=== PATIENT | female | born 1940 | race Caucasian/White ===

== ENCOUNTER 2023-07-26 17:28 | Inpatient (IN) | payer MEDICARE, SELFPAY ==
[2023-07-26 12:25] VITALS: BP 133/66
[2023-07-26 12:44] LABS: % Basophils 0.2 % (0-2); % Eosinophils 2.4 % (0-6); % Immature Granulocytes 0.5 % (0-0.5); % Lymphocytes 12.9 % (20.5-51.1); % Monocytes 9.8 % (1.7-9.3); % Neutrophils 74.2 % (42.2-75.2); Absolute Eosinophils 0.1 10^3/uL (0-0.7); Absolute Lymphocytes 0.7 10^3/uL (1.2-3.4); Absolute Monocytes 0.6 10^3/uL (0.1-0.6); Absolute Neutrophils 4.3 10^3/uL (1.4-6.5); Hematocrit 29.2 % (37.0-47.0); Hemoglobin 10.1 g/dL (12.0-16.0); Mean Corp Hgb Conc. 34.6 g/dL (33.0-37.0); Mean Corpuscular Hgb 31.7 pg (27.0-31.0); Mean Corpuscular Volume 91.5 fL (81.0-99.0); Mean Platelet Volume 10.1 fL (7.4-10.4); Nucleated Red Blood Cells % 0 %; Platelet Count 158 10^3/uL (130-400); Red Blood Cell Count 3.19 10^6/uL (4.20-5.40); Red Cell Dist. Width 14.7 % (11.5-14.5); White Blood Cell Count 5.7 10^3/uL (4.8-10.8)
[2023-07-26 13:09] LABS: ALT (SGPT) 12 U/L (0-35); AST (SGOT) 21 U/L (14-36); Albumin 3.9 g/dl (3.5-5.0); Alkaline Phosphatase 94 U/L (38-126); Blood Urea Nitrogen 51 mg/dl (7-17); Calcium 9.1 mg/dl (8.4-10.2); Carbon Dioxide 21 mmol/L (22-30); Chloride 105 mmol/L (98-107); Glucose 95 mg/dl (70-99); Sodium 132 mmol/L (135-145); Total Bilirubin 0.6 mg/dl (0.2-1.3); Total Protein 6.7 g/dl (6.3-8.2); eGFR 15.39
[2023-07-26 13:28] VITALS: BMI 34.7
--- NOTE | 2023-07-26 13:54 | ED.GENMED ---
History of Present Illness
General
Chief Complaint: Urinary Symptoms
Source: patient and family (daughter at bedside)
Exam Limitations: dementia
Time Seen by Provider: 07/26/23 12:57
Nursing documentation reviewed up to this point in time: agreed with
Travel History
Have you had any contact with someone who has COVID-19?: No
Do you have any symptoms of coronavirus? Fever > 100 degrees, chills, cough, shortness of breath, sore throat, loss of taste or smell, muscle aches, or headache?: No
History of Present Illness
History of Present Illness:
83 yo female from [facility] (admitted there from home 3 weeks ago), h/o COPD, HTN, HLD, GERD, breast CA, arrhythmias with syncope then pacemaker, on Eliquis has been having hematuria. Daughter states pt was diagnosed with UTI 2 weeks ago,
started on Bactrim 6 days ago, pt told daughter she was 'peeing blood,' 3 days ago, daughter actually saw it in a hat in toiled today and took picture, it is dark maroon urine in hat.
Pt denies CP, SOB, has felt fatigued. Denies abdominal pain, fever, chill, denies n/v/d.
Past History
Past History
ED Past Medical History: Cancer (Lumpectomy), HTN, Hypercholesterolemia and Hypothyroidism
ED Past Surgical History: Appendectomy, Cardiac (pacemaker), Gynecological, Orthopedic, Urological (hysterectomy) and Other (Lumpectomy L 2010)
Social History
Tobacco: Non-smoker
Alcohol: None
Drug: None
Personal:
Living: with family
Employment: Retired
Family History
Family History: Hypertension
Review of Systems
Review of Systems
Allergies reviewed?: Yes
All Other Systems: ROS reviewed and negative except as documented in HPI and ROS
Constitutional: Reports fatigue; Denies fever
Respiratory: Denies trouble breathing
Cardiac: Denies chest pain
ABD/GI: Denies abdominal pain, nausea, vomiting or diarrhea
: Reports flank pain (R flank pain), incontinence and dark urine; Denies dysuria, frequency, difficulty voiding or urgency
Skin: Reports no symptoms
Neurological: Reports no symptoms
Phy Exam
Physical Exam
Physical Exam:
GENERAL: No acute distress. A&Ox3. Mild memory issues from dementia
CONSTITUTIONAL: Afebrile.
EYES: PERRL, conjunctivae normal
Neck: Supple
ENMT: moist mucus membranes, Pharynx nl
RESPIRATORY: Regular respirations, nonlabored, lungs clear.
CARDIOVASCULAR: Regular rate and rhythm, no murmurs, no rubs.
GI: Soft, nontender, normal BS. Right flank tenderness to palpation
: There is no blood coming from the vaginal canal. This examiner straight catheterized patient for 200 mL of dilute brownish-maroon colored urine.
MUSCULOSKELETAL: No edema. Well perfused.
SKIN: Warm, dry, pink
PSYCH: Normal mood and affect. Well kept, interactive and appropriate
NEUROLOGIC: Awake, alert and oriented. Forgetful at times. No focal neurological deficits
Course
Orders/Labs/Results
Orders:
Orders
07/26/23 12:33
Complete Blood Count/With Diff Urgent
Comprehensive Metabolic Panel Urgent
07/26/23 13:26
PT/INR [Prothrombin Time] Urgent
07/26/23 14:07
Urinalysis Reflex To Culture Urgent
Date Specimen was Collected: 07/26/23
Time Specimen was Collected: 14:06
Urine Microscopic Reflex Cult Urgent
Urine Culture Urgent
PATRICIA Source: U
Specimen Description:
Date Specimen was Collected: 07/26/23
Time Specimen was Collected: 14:06
07/26/23 14:09
Abdomen/Pelvis wo Contrast CT [CT Abd/pelvis Wo Iv Cont] Urgent
Comment:
Reason For Exam: Hematuria on Eliquis, ELIOT
07/26/23 Dinner
Regular
At Your Request: Full Participation
07/26/23 16:37
Admit/Transfer Patient As Directed
Co-Sign Provider:
Level of Care: Inpatient admission
Assign to:: Medical/Surgical
Physician / Group: kayden
Diagnosis: kidney mass
Reason for Hospitalization: kidney mass
Expected length of stay greater than two midnights?: Yes
ELOS- Estimated Length of Stay in days: 2
I certify the patient meets the requirements for IP care: Yes
07/26/23 16:38
Code Status As Directed
Resuscitation Status: Do not resuscitate
Reached after discussion with pt or family/Healthcare POA: Yes
DNR Bracelet Application ONCE
07/26/23 16:44
Intake/ Output As Directed
Frequency: Per unit guidelines
Comment: strict intake and output monitoring
Weight As Directed
Frequency: Daily
07/26/23 19:44
0.9% Sodium Chloride 1000 ml [Nss] 1,000 ml IV 80 mls/hr
Acetaminophen [Tylenol] 650 mg PO Q6HPRN PRN
Albuterol [ProAIR HFA INHALER] 1 puff INH R Q6HPRN PRN
07/26/23 19:44
Activity As Directed
Activity Level: As Tolerated
Pneumatic Compression Sleeves As Directed
Type: Knee high
Vital Signs As Directed
Frequency: Per unit guidelines
DX Deep Vein Thrombosis Video Routine
07/26/23 21:00
Metoprolol Xl [Toprol Xl] 12.5 mg PO BID
Pantoprazole [Protonix] 40 mg PO BID
07/27/23 07:00
Levothyroxine [Synthroid] 88 mcg PO DAILY AT 0700
07/27/23 07:21
Complete Blood Count/With Diff IN AM
Comprehensive Metabolic Panel IN AM
07/27/23 08:00
Lactobac/Bifidobac [Visbiome] 1 cap PO DAILY
Tolterodine Extended Release [Detrol LA] 2 mg PO DAILY
Abnormal Lab Results
07/26/23 07/26/23 07/26/23
12:33 13:26 14:07
RBC 3.19 L 10^6/uL
(4.20-5.40)
Hgb 10.1 L g/dL
(12.0-16.0)
Hct 29.2 L %
(37.0-47.0)
MCH 31.7 H pg
(27.0-31.0)
RDW 14.7 H %
(11.5-14.5)
Absolute Lymphs (auto) 0.7 L 10^3/uL
(1.2-3.4)
Lymphocytes % 12.9 L %
(20.5-51.1)
Monocytes % 9.8 H %
(1.7-9.3)
PT 23.6 H Sec
(11.4-14.6)
Sodium 132 L mmol/L
(135-145)
Carbon Dioxide 21 L mmol/L
(22-30)
BUN 51 H mg/dl
(7-17)
Creatinine 2.9 H mg/dL
(0.6-1.0)
Urine Ketones Trace A
(Negative)
Ur Occult Blood Reflex 4+ A
(Negative)
Urine Nitrite (Reflex) Positive A
(Negative)
Urine Bilirubin 1+ A
(Negative)
Leukocyte Esterase Rfl 1+ A
(Negative)
Urine RBC >100 A /HPF
(0-2)
Urine Bacteria (Reflex) Few A
(Negative)
Urine Albumin (Reflex) 2+ A
(Neg - Trace)
07/26/23 12:33
07/26/23 12:33
Vital Signs
Initial and Last Documented VS:
Initial Vital Signs
Temp Pulse Resp BP Pulse Ox
98.5 F 71 18 133/66 95
07/26/23 12:25 07/26/23 12:25 07/26/23 12:25 07/26/23 12:25 07/26/23 12:25
Last Documented Vital Signs
Temp Pulse Resp BP Pulse Ox
97.5 F 63 18 183/63 96
07/27/23 16:39 07/27/23 16:39 07/27/23 16:39 07/27/23 16:39 07/27/23 16:39
Bin Filler consulted with Physician
Bin Filler consulted with physician?: Yes
Name of Physician Consulted: Lois
MDM/Problems Addressed
Differential Diagnosis Includes:
hemorrhagic cystitis, malignancy, Eliquis overmedication, vaginal bleeding
MDM/Problems Addressed:
83 yo female from [facility] (admitted there from home 3 weeks ago), h/o COPD, HTN, HLD, GERD, breast CA, arrhythmias with syncope then pacemaker, on Eliquis has been having hematuria. Daughter states pt was diagnosed with UTI 2 weeks ago,
started on Bactrim 6 days ago, pt told daughter she was 'peeing blood,' 3 days ago, daughter actually saw it in a hat in toiled today and took picture, it is dark maroon urine in hat.
Pt denies CP, SOB, has felt fatigued. Denies abdominal pain, fever, chill, denies n/v/d.
afebrile, NAD
07/26/2023 1555 PM
No indication of vaginal bleeding on exam
CBC with no clinically significant abnormality
CMP: Worsening kidney functions with BUN/creat 51/2.9 otherwise no clinically significant abnormality
UA: Straight catheterized: 4+ occult blood positive nitrites, +1 leukocytes, greater than 100 RBCs, negative WBCs
CT abdomen pelvis with IV contrast: Radiology report read: IMPRESSION:
No findings to suggest urinary tract calculus or dilatation bilaterally.
Cannot exclude approximate 7 cm slightly high attenuation lesion such as a mass/tumor along the lower pole the right kidney.
Limited evaluation of unopacified urinary bladder. Cannot exclude some mild right posterior urinary bladder wall thickening versus en plaque lesion.
Small hiatal hernia.
83 yo female with ELIOT, gross hematuria (on eliquis), 7 cm mass on R kidney, on Bactrim day 6 for UTI
Discussed with Dr. Abreu who agrees with admission
Hospitalist notified of admission
Daughter at bedside updated on results and plan.
*Critical Care Note
Total Time (30-74mins, 75-104mins- exclusive of procedures): Not Applicable
ED Attending Note
-
Portions of this chart may have been created with voice recognition software.� Occasional wrong word or��sound alike� substitutions may have occurred due to the inherent limitations of voice recognition software.
Discharge Plan
Departure
Patient Disposition: Admit
Date of Disposition: 07/26/23
Time of Disposition: 16:01
Admit to: Med/Surg
Presentation/result/management discussed w/ accepting MD/DO: Hospitalist
Condition: Fair
Discharge Problem:
Gross hematuria, ELIOT (acute kidney injury), Renal mass, right
Interventions
Interventions:
*Risk Screen - Suicide Last Done: 07/26/23 12:25
*General Assessment Last Done: 07/26/23 12:25
*Neglect/Abuse Screening Last Done: 07/26/23 12:25
ED- Fall Risk Assessment Last Done: 07/26/23 13:28
*ED COVID-19 Vaccine History Last Done: 07/26/23 12:25
*Nursing Disposition Last Done: 07/26/23 21:20
Discharge Date and Time
Discharge Date/Time: 07/26/23 21:21
[2023-07-26 13:57] LABS: INR 2.07; PT 23.6 Sec (11.4-14.6)
[2023-07-26 14:25] LABS: Urine Albumin 2+ (Neg - Trace); Urine Bilirubin 1+ (Negative); Urine Character Slightly Cloudy (Clear); Urine Color Amber; Urine Glucose Negative (Negative); Urine Ketone Trace (Negative); Urine Leukocyte 1+ (Negative); Urine Nitrite Positive (Negative); Urine Occult Blood 4+ (Negative); Urine Urobilinogen Negative (Neg - 1+)
[2023-07-26 15:21] LABS: Urine Red Blood Cell >100 /HPF (0-2)
[2023-07-26 15:22] LABS: Urine Bacteria Few (Negative)
--- NOTE | 2023-07-26 16:45 | HPS.HSE ---
Addendum entered and electronically signed by Izabella Reynolds MD 07/26/23 17:39:
Urology thinks patient has hemorrhagic cystitis. Await urine culture and Start Levaquin for persistent UTI.
Original Note:
Family Physician
-
Family Physician: CAMILO Pierce
Chief Complaint
-
blood in the urine
History of Present Illness
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
Eliquis presenting from [facility] with dark blood in the urine noticed over the past 2 days.
Patient was apparently diagnosed with UTI 2 weeks ago because she was having urinary frequency and burning and has been on Bactrim for the past 6 days. The dysuria has resolved but 2 days ago staff noticed that there was blood in the urine which
has been ongoing. Patient also complained of some right flank pain recently although no pain currently. No abdominal pain or nausea or vomiting. No history of kidney stones. Patient has lost 10 pounds recently and has been feeling fatigued.
No family history of urological problems.
She was a former smoker. She no longer drinks alcohol.
Medical History
Past Medical History
Past Medical History: Reports Other (dementia, COPD, hypertension, hypercholesteremia, hypothyroidism, GERD, breast cancer status postlumpectomy, left bundle branch block, atrial arrhythmia/bradycardia status post permanent pacemaker on Eliquis)
Past Surgical History: Reports Other ( Appendectomy, Cardiac (pacemaker), Gynecological, Orthopedic, Urological (hysterectomy) and Other (Lumpectomy L 2010))
Social History
Tobacco: Former Smoker
Alcohol: None
Drug: None
Family History
Family History: Not pertinent
Allergies / Home Medications
Allergies reflects when Allergies were last updated in [facility].
Home Medications with original date entered in [facility]
Allergy/Medication List:
Allergies
Allergy/AdvReac Type Severity Reaction Status Date / Time
Cephalosporins Allergy Severe Rash Verified 07/26/23 12:29
Penicillins Allergy Severe Rash Verified 07/26/23 12:29
sulfamethoxazole Allergy Mild Rash Verified 07/26/23 12:29
[From Bactrim]
trimethoprim [From Bactrim] Allergy Mild Rash Verified 07/26/23 12:29
Home Medications
omeprazole 20 mg capsule,delayed release 20 mg PO BID Gastrointestinal Issue 02/17/19
solifenacin 10 mg tablet (Vesicare) 5 mg PO DAILY Urinary Issue 02/17/19
Lactobac no.2-Bifidobac no.1-S. thermo 112.5 billion cell capsule (Visbiome) 1 cap PO DAILY probiotic 07/26/23
acetaminophen 325 mg tablet (Tylenol) 650 mg PO Q6HPRN PRN mild pain 07/26/23
albuterol sulfate 90 mcg/actuation aerosol inhaler (ProAir HFA) 1 puff inhalation R Q6HPRN PRN sob 07/26/23
apixaban 5 mg tablet (Eliquis) 5 mg PO BID Blood Clot Prevention/Tx 07/26/23
levothyroxine 88 mcg tablet (Synthroid) 88 mcg PO DAILY Thyroid 07/26/23
metoprolol succinate 25 mg tablet,extended release 24 hr (Toprol XL) 12.5 mg PO BID Blood Pressure 07/26/23
sulfamethoxazole 800 mg-trimethoprim 160 mg tablet (Bactrim DS) 1 tab PO BID Infection 07/26/23
valsartan 80 mg tablet (Diovan) 80 mg PO DAILY Blood Pressure 07/26/23
Review of Systems
-
History Source: Patient
A 12 point ROS was completed and negative except as noted: Yes
Constitutional: Reports No Symptoms
EENT: Reports No Symptoms
Respiratory: Reports No Symptoms
Cardiac: Reports No Symptoms
Abdomen/GI: Reports No Symptoms
: Reports See HPI
Musculoskeletal: Reports No Symptoms
Skin: Reports No Symptoms
Neurological: Reports No Symptoms
Endocrine: Reports No Symptoms
Hematologic/Lymphatic: Reports No Symptoms
Psych: Reports No Symptoms
Physical Exam
Vital Signs
Vital Signs
Temp Pulse Resp BP Pulse Ox
98.5 F 71 18 133/66 95
07/26/23 12:25 07/26/23 12:25 07/26/23 12:25 07/26/23 12:25 07/26/23 12:25
Physical Exam
General: Well Developed, Well Nourished and No Apparent Distress
HEENT: NormoCephalic, Moist mucous membranes and Atraumatic
Respiratory: Clear
Cardiac: S1/S2 and Regular Rhythm; No Murmur or Rub
GI: Soft, Non Tender, Non Distended and Normal Bowel Sounds; No Organomegaly
Rectal: Deferred by Provider
Musculoskeletal: No Clubbing, No Cyanosis and No Edema
Skin: No Rash
Neuro: Nonfocal/grossly intact
Laboratory Results
-
07/26/23 12:33
07/26/23 12:33
Laboratory Results
PT 23.6 Sec (11.4-14.6) H 07/26/23 13:26
INR 2.07 07/26/23 13:26
Total Bilirubin 0.6 mg/dl (0.2-1.3) 07/26/23 12:33
AST 21 U/L (14-36) 07/26/23 12:33
ALT 12 U/L (0-35) 07/26/23 12:33
Alkaline Phosphatase 94 U/L (38-126) 07/26/23 12:33
Data Reviewed
-
Lab Data: Labs Reviewed by me
Old Records: Reviewed
Impression/Plan
-
IMPRESSION:
PLAN:
# Hematuria likely secondary to right kidney mass
-Patient retaining 200 cc of urine
-Urinalysis shows greater than 100 RBC, +1 leukocyte esterase, positive nitrates and cloudy urine and 3-5 [address]
-CT abdomen pelvis shows 7 cm slightly high attenuation lesion mass/tumor along the lower pole of the right kidney
-Hold Eliquis
-Campos catheter likely to be placed
-Urology consulted
# ELIOT on CKD
-Creatinine of 2.9 from 1.3
-IV fluids
-Hold Bactrim
-Hold valsartan
# Recent UTI
-Received 6 days of Bactrim, discontinue further antibiotics
Chronic urinary incontinence/overactive bladder
-Continue Vesicare
Dementia
Chronic anemia
-Hemoglobin stable
History of atrial arrhythmia with pacemaker
-Hold Eliquis
-Continue metoprolol
History of left bundle branch block
History of breast cancer status postlumpectomy
COPD
-Continue inhalers
Essential hypertension
Hypercholesterolemia
Hypothyroidism
-Continue levothyroxine
GERD
-Continue omeprazole
Former smoker
DNR/DNI
DVT prophylaxis�SCDs
Regular diet
[2023-07-26] MEDS: LEVAQUIN 100 IV (18:07)
[2023-07-26 21:44] VITALS: BP 149/69; BMI 34.2
[2023-07-26] MEDS: NSS 1000 IV (21:46)
[2023-07-26] MEDS: PROTONIX 40 MG PO (22:09)
[2023-07-26] MEDS: TOPROL XL 12.5 MG PO (22:10)
[2023-07-26 23:06] VITALS: BP 141/75
--- NOTE | 2023-07-27 01:00 | PTCARENOTE ---
Received patient from ER, AAOx3. Patient transferred from stretcher to bed with assist of 3. No c/o pain at this time. Voiding tea colored urine. Oriented to unit, placed on bed alarm d/t recent falls. Bruising noted to left buttocks. Call aparicio
in reach, plan of care continues.
[2023-07-27 06:00] VITALS: BMI 33.8
[2023-07-27] MEDS: SYNTHROID 88 MCG PO (06:31)
[2023-07-27 07:00] VITALS: BP 149/70
[2023-07-27 08:02] LABS: % Basophils 0.2 % (0-2); % Eosinophils 2.8 % (0-6); % Immature Granulocytes 0.2 % (0-0.5); % Lymphocytes 11.8 % (20.5-51.1); % Monocytes 9.3 % (1.7-9.3); % Neutrophils 75.7 % (42.2-75.2); Absolute Eosinophils 0.1 10^3/uL (0-0.7); Absolute Lymphocytes 0.6 10^3/uL (1.2-3.4); Absolute Monocytes 0.5 10^3/uL (0.1-0.6); Absolute Neutrophils 3.9 10^3/uL (1.4-6.5); Hematocrit 28.3 % (37.0-47.0); Hemoglobin 9.7 g/dL (12.0-16.0); Mean Corp Hgb Conc. 34.3 g/dL (33.0-37.0); Mean Corpuscular Hgb 31.3 pg (27.0-31.0); Mean Corpuscular Volume 91.3 fL (81.0-99.0); Mean Platelet Volume 10.5 fL (7.4-10.4); Nucleated Red Blood Cells % 0 %; Platelet Count 158 10^3/uL (130-400); Red Cell Dist. Width 14.6 % (11.5-14.5); White Blood Cell Count 5.1 10^3/uL (4.8-10.8)
[2023-07-27 08:28] LABS: ALT (SGPT) 11 U/L (0-35); AST (SGOT) 19 U/L (14-36); Albumin 3.7 g/dl (3.5-5.0); Alkaline Phosphatase 92 U/L (38-126); Blood Urea Nitrogen 44 mg/dl (7-17); Calcium 9.3 mg/dl (8.4-10.2); Carbon Dioxide 21 mmol/L (22-30); Chloride 103 mmol/L (98-107); Estimated Creatinine Clearance 17 ml/min; Glucose 92 mg/dl (70-99); Potassium 4.9 mmol/L (3.5-5.1); Sodium 134 mmol/L (135-145); Total Bilirubin 0.6 mg/dl (0.2-1.3); Total Protein 6.6 g/dl (6.3-8.2); eGFR 21.43
[2023-07-27] MEDS: PROTONIX 40 MG PO ×2 (09:02→20:03)
[2023-07-27] MEDS: DETROL LA 2 MG PO (09:02)
[2023-07-27] MEDS: VISBIOME 1 CAP PO (09:02)
[2023-07-27] MEDS: TOPROL XL 12.5 MG PO ×2 (09:02→20:03)
--- NOTE | 2023-07-27 10:09 | CM ---
Patient seen at bedside. Patient daughter also present. Patient daughter states that patient will return to LTC SNF at [facility]. CM will call to admissions and confirm bed hold with [facility]. CM will continue to follow for discharge
planning needs.
Plan; return to SNF when medically appropriate.
[2023-07-27] MEDS: NSS 1000 IV ×2 (10:33→22:58)
--- NOTE | 2023-07-27 10:47 | W.PN.HOSP.TC ---
Today's Communication/Plan
-
Continue to hold Eliquis
Continue present course of antibiotic with Levaquin
Continue hydration for another 24 hours
Monitor BMP/H&H with continued hematuria consult urology
Patient's daughter reiterated she would not consent to any interventions including cystoscopy if needed
Assessment / Plan
Assessment / Plan
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
Eliquis presenting from [facility] with dark blood in the urine noticed over the past 2 days.
Patient was apparently diagnosed with UTI 2 weeks ago because she was having urinary frequency and burning and has been on Bactrim for the past 6 days.� The dysuria has resolved but 2 days ago staff noticed that there was blood in the urine which
has been ongoing.� Patient also complained of some right flank pain recently although no pain currently.� No abdominal pain or nausea or vomiting.� No history of kidney stones.� Patient has lost 10 pounds recently and has been feeling fatigued.
No family history of urological problems.
She was a former smoker.� She no longer drinks alcohol.
Daughter reiterates that no interventions or invasive procedures be pursued in keeping with DNR status
# Hematuria likely secondary to right kidney mass
-Patient retaining 200 cc of urine
-Urinalysis shows greater than 100 RBC, +1 leukocyte esterase, positive nitrates and cloudy urine and 3-5 W[address]
-CT abdomen pelvis shows 7 cm slightly high attenuation lesion mass/tumor along the lower pole of the right kidney
-Hold Eliquis
-Campos catheter likely to be placed
-Urology consulted/they reviewed CT imaging and lower pole mass is actually 0.7 cm/with continued hematuria and the patient on anticoagulant therapy will confer with urology
# ELIOT on CKD
-Creatinine of 2.9 from 1.3/now at 2.2
-IV fluids will continue another 24 hours/she does have a history of CHF and will have to be cautious
-Hold Bactrim
-Hold valsartan
# Recent UTI
-Received 6 days of Bactrim, discontinue further antibiotics
Chronic urinary incontinence/overactive bladder
-Continue Vesicare
Dementia
Chronic anemia
-Hemoglobin stable thus far but trending down with continued hematuria
History of atrial arrhythmia with pacemaker
-Hold Eliquis
-Continue metoprolol
History of left bundle branch block
History of breast cancer status postlumpectomy
COPD
-Continue inhalers
Essential hypertension
Hypercholesterolemia
Hypothyroidism
-Continue levothyroxine
GERD
-Continue omeprazole
Former smoker
DNR/DNI
DVT prophylaxis�SCDs/apixaban continue to be held
Regular diet
Anticipated Discharge: 24 - 48 hours
Subjective/Interval History
-
Date of Service: July 27, 2023
Still passing bloody urine patient is a poor historian and virtually all history obtained from daughter who is at bedside. Is unclear how long time she has had hematuria
Objective Data
-
Labs:
Laboratory Results
07/27/23
07:21
WBC 5.1
Hgb 9.7 L
Hct 28.3 L
Plt Count 158
Sodium 134 L
Potassium 4.9
Chloride 103
Carbon Dioxide 21 L
BUN 44 H
Creatinine 2.2 H
Glucose 92
Calcium 9.3
Total Bilirubin 0.6
AST 19
ALT 11
Alkaline Phosphatase 92
Vital Signs:
Vital Signs
Temp Pulse Resp BP Pulse Ox
98.1 F 60 18 149/70 93
07/27/23 07:00 07/27/23 07:00 07/27/23 07:00 07/27/23 07:00 07/27/23 08:30
I&O
07/26/23 07/27/23 07/28/23
06:59 06:59 06:59
Intake Total 0 / 0 480 / 480
Output Total 550 / 550
Balance -550 / -550 480 / 480
Review of Systems
-
Unable to obtain full review of systems at this time due to: Dementia
History Source: Patient and Family
Respiratory: Reports No Symptoms
Cardiac: Reports No Symptoms
Genitourinary: Reports Bleeding and Dark Urine
Physical Exam
-
General: Obese
HEENT: Normocephalic
Respiratory: Clear to Auscultation
Cardiac: Regular Rhythm
GI: Soft
Musculoskeletal: No Clubbing
Skin: Warm
Neuro: Awake, Alert, Oriented, AO x 3 and No Motor Deficits
Psych: Calm, Confused and Apparent Dementia
Data Reviewed
-
Total Time Spent with Patient (in minutes): 56
Labs: Labs Reviewed by me (Hemoglobin down to 9.7/renal mass on right side is actually 0.7 cm/creatinine down to 2.2 BUN down to 44)
[2023-07-27] MEDS: TYLENOL 650 MG PO ×2 (12:45→20:06)
[2023-07-27 16:39] VITALS: BP 183/63
[2023-07-27 23:52] VITALS: BP 146/70
[2023-07-28 06:00] VITALS: BMI 34.2
[2023-07-28] MEDS: SYNTHROID 88 MCG PO (06:03)
[2023-07-28 07:30] VITALS: BP 170/77
[2023-07-28 09:00] LABS: Hemoglobin 10.6 g/dL (12.0-16.0); Mean Corp Hgb Conc. 34.2 g/dL (33.0-37.0); Mean Corpuscular Hgb 31.5 pg (27.0-31.0); Mean Platelet Volume 10.4 fL (7.4-10.4); Platelet Count 158 10^3/uL (130-400); Red Blood Cell Count 3.37 10^6/uL (4.20-5.40); Red Cell Dist. Width 14.5 % (11.5-14.5); White Blood Cell Count 4.6 10^3/uL (4.8-10.8)
[2023-07-28] MEDS: PROTONIX 40 MG PO ×2 (09:44→20:57)
[2023-07-28] MEDS: TOPROL XL 12.5 MG PO ×2 (09:44→20:57)
[2023-07-28] MEDS: DETROL LA 2 MG PO (09:44)
--- NOTE | 2023-07-28 09:44 | W.PN.HOSP.TC ---
Today's Communication/Plan
-
Improving
Overweight renal numbers today
Continue every 48 hour Levaquin
Continue cautious hydration
Once renal numbers improve can consider resumption of valsartan
With resolution of hematuria and completion of treatment for her hemorrhagic 6 that cystitis can resume Eliquis
Should hematuria return would need to see urology on follow-up as outpatient
Assessment / Plan
Assessment / Plan
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
Eliquis presenting from [facility] with dark blood in the urine noticed over the past 2 days.
Patient was apparently diagnosed with UTI 2 weeks ago because she was having urinary frequency and burning and has been on Bactrim for the past 6 days.� The dysuria has resolved but 2 days ago staff noticed that there was blood in the urine which
has been ongoing.� Patient also complained of some right flank pain recently although no pain currently.� No abdominal pain or nausea or vomiting.� No history of kidney stones.� Patient has lost 10 pounds recently and has been feeling fatigued.
No family history of urological problems.
She was a former smoker.� She no longer drinks alcohol.
Daughter reiterates that no interventions or invasive procedures be pursued in keeping with DNR status
# Hematuria likely secondary to right kidney mass
-Patient retaining 200 cc of urine
-Urinalysis shows greater than 100 RBC, +1 leukocyte esterase, positive nitrates and cloudy urine and 3-5 W[address]
-CT abdomen pelvis shows 7 cm slightly high attenuation lesion mass/tumor along the lower pole of the right kidney
-Hold Eliquis
-Urology consulted and conferred with them no need to see patient/they reviewed CT imaging and lower pole mass is actually 0.7 cm/recommendation is to complete course of therapy for UTI and consideration is hemorrhagic cystitis as cause of hematuria
will see as outpatient as needed should hematuria returned consideration would be toward discontinuation of Eliquis
# ELIOT on CKD
-Creatinine of 2.9 from 1.3/now at 2.2>> pending
-IV fluids will continue another 24 hours/she does have a history of CHF and will have to be cautious
-Hold Bactrim
-Hold valsartan/can be resumed once creatinine stabilizes
# Recent UTI
-Received 6 days of Bactrim, discontinue further placed on every 48 hour Levaquin
Chronic urinary incontinence/overactive bladder
-Continue Vesicare
Dementia
Chronic anemia
-Hemoglobin stable thus far but trending down with continued hematuria
History of atrial arrhythmia with pacemaker
-Hold Eliquis
-Continue metoprolol
History of left bundle branch block
History of breast cancer status postlumpectomy
COPD
-Continue inhalers
Essential hypertension
Hypercholesterolemia
Hypothyroidism
-Continue levothyroxine
GERD
-Continue omeprazole
Former smoker
DNR/DNI
DVT prophylaxis�SCDs/apixaban continue to be held
Regular diet
Anticipated Discharge: Within 24 hours
Subjective/Interval History
-
Date of Service: July 28, 2023
Poor historian due to underlying dementia
Nursing reports just tea-colored urine only no evidence of any gross hematuria.
Objective Data
-
Labs:
Laboratory Results
07/28/23
07:57
WBC 4.6 L
Hgb 10.6 L
Hct 31.0 L
Plt Count 158
Sodium Pending
Potassium Pending
Chloride Pending
Carbon Dioxide Pending
BUN Pending
Creatinine Pending
Glucose Pending
Calcium Pending
Vital Signs:
Vital Signs
Temp Pulse Resp BP Pulse Ox
97.9 F 67 16 170/77 94
07/28/23 07:30 07/28/23 08:18 07/28/23 08:18 07/28/23 07:30 07/28/23 08:18
I&O
07/27/23 07/28/23 07/29/23
06:59 06:59 06:59
Intake Total 0 / 0 1620 / 1620
Output Total 550 / 550 1100 / 1100
Balance -550 / -550 520 / 520
Physical Exam
-
HEENT: Normocephalic
Respiratory: Clear to Auscultation
Cardiac: Regular Rhythm
GI: Soft
Musculoskeletal: No Clubbing
Neuro: Awake; Negative Oriented or AO x 3
Psych: Calm
Data Reviewed
-
Total Time Spent with Patient (in minutes): 56
Labs: Labs Reviewed by me (Leukocytosis remains resolved/awaiting renal numbers last creatinine 2.2 was trending down)
[2023-07-28] MEDS: VISBIOME 1 CAP PO (09:45)
[2023-07-28 09:46] LABS: Blood Urea Nitrogen 32 mg/dl (7-17); Calcium 8.9 mg/dl (8.4-10.2); Carbon Dioxide 20 mmol/L (22-30); Chloride 106 mmol/L (98-107); Estimated Creatinine Clearance 24 ml/min; Glucose 101 mg/dl (70-99); Potassium 4.8 mmol/L (3.5-5.1); Sodium 136 mmol/L (135-145); eGFR 31.41
--- NOTE | 2023-07-28 11:17 | CM ---
Addendum entered by Shara Escobar 07/28/23 13:37:
CM spoke with Hoa from [facility]. Per Hoa, patient was SNF and in process of transitioning to LTC. TT sent to Hospitalist for PT/OT orders, patient will require auth to return to SNF. CM spoke with patients daughter, Sanna, inquiring about
switching to [facility]. CM sent message to James liaison at [facility], no availability as of now, possibly next week. Daughter also inquiring about [facility], TT sent to Nighat with [facility], unable to accept patient.
Original Note:
Patient seen bedside. CM awaiting confirmation from [facility] that patient is on bed hold. CM will continue to follow for discharge planning needs.
Plan; return to [facility] when stable, awaiting confirmation patient is on bed hold.
[2023-07-28] MEDS: NSS 1000 IV (11:40)
[2023-07-28] MEDS: LEVAQUIN 50 IV (11:42)
[2023-07-28] MEDS: TYLENOL 650 MG PO (11:51)
[2023-07-28 15:00] VITALS: BP 137/79
[2023-07-28 16:00] VITALS: BP 137/76; PULSE 71
[2023-07-28 23:38] VITALS: BP 147/72
[2023-07-29] MEDS: SYNTHROID 88 MCG PO (05:10)
[2023-07-29 06:00] VITALS: BMI 34.8
[2023-07-29 07:31] LABS: Hematocrit 30.1 % (37.0-47.0); Hemoglobin 9.9 g/dL (12.0-16.0); Mean Corp Hgb Conc. 32.9 g/dL (33.0-37.0); Mean Corpuscular Hgb 30.7 pg (27.0-31.0); Mean Corpuscular Volume 93.2 fL (81.0-99.0); Mean Platelet Volume 10.3 fL (7.4-10.4); Platelet Count 153 10^3/uL (130-400); Red Blood Cell Count 3.23 10^6/uL (4.20-5.40); Red Cell Dist. Width 14.7 % (11.5-14.5); White Blood Cell Count 4.8 10^3/uL (4.8-10.8)
[2023-07-29 07:52] VITALS: BP 127/68
[2023-07-29] MEDS: VISBIOME 1 CAP PO (09:29)
[2023-07-29] MEDS: LEVAQUIN 50 IV (09:29)
[2023-07-29] MEDS: PROTONIX 40 MG PO ×2 (09:29→20:58)
[2023-07-29] MEDS: TOPROL XL 12.5 MG PO ×2 (09:29→21:01)
[2023-07-29] MEDS: DETROL LA 2 MG PO (09:29)
[2023-07-29] MEDS: FLUSH (NSS) 2 FLUSH IV (09:30)
--- NOTE | 2023-07-29 10:25 | W.PN.HOSP.TC ---
Today's Communication/Plan
-
Recheck renal numbers
Would give 2 more doses of Levaquin then discontinue
Restart Eliquis if recurs with hematuria will need to see urology in follow-up as outpatient
Assessment / Plan
Assessment / Plan
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
Eliquis presenting from [facility] with dark blood in the urine noticed over the past 2 days.
Patient was apparently diagnosed with UTI 2 weeks ago because she was having urinary frequency and burning and has been on Bactrim for the past 6 days.� The dysuria has resolved but 2 days ago staff noticed that there was blood in the urine which
has been ongoing.� Patient also complained of some right flank pain recently although no pain currently.� No abdominal pain or nausea or vomiting.� No history of kidney stones.� Patient has lost 10 pounds recently and has been feeling fatigued.
No family history of urological problems.
She was a former smoker.� She no longer drinks alcohol.
Daughter reiterates that no interventions or invasive procedures be pursued in keeping with DNR status
# Hematuria likely secondary to hemorrhagic cystitis
-
-Urinalysis shows greater than 100 RBC, +1 leukocyte esterase, positive nitrates and cloudy urine and 3-5 WBC/urine culture with only 25,000 Streptococcus
-CT abdomen pelvis shows 7 cm slightly high attenuation lesion mass/tumor along the lower pole of the right kidney
-Hold Eliquis
-Urology consulted and conferred with them no need to see patient/they reviewed CT imaging and lower pole mass is actually 0.7 cm/recommendation is to complete course of therapy for UTI and consideration is hemorrhagic cystitis as cause of hematuria
will see as outpatient as needed should hematuria returned consideration would be toward discontinuation of Eliquis/will complete course of therapy with Levaquin
# ELIOT on CKD
-Creatinine of 2.9 from 1.3/now at 2.2>> pending
-IV fluids will continue another 24 hours/she does have a history of CHF and will have to be cautious
-Hold Bactrim
-Hold valsartan/can be resumed once creatinine stabilizes
-His creatinine 1.6 will recheck in a.m.
# Recent UTI
-Received 6 days of Bactrim,
-Renal dosed Levaquin started in titrated down to 250 mg
Chronic urinary incontinence/overactive bladder
-Continue Vesicare
Dementia
Chronic anemia
-Hemoglobin stable thus far but trending down with continued hematuria
History of atrial arrhythmia with pacemaker
-Hold Eliquis
-Continue metoprolol
History of left bundle branch block
History of breast cancer status postlumpectomy
COPD
-Continue inhalers
Essential hypertension
Hypercholesterolemia
Hypothyroidism
-Continue levothyroxine
GERD
-Continue omeprazole
Former smoker
DNR/DNI
DVT prophylaxis�SCDs/apixaban continue to be held
Regular diet
Anticipated Discharge: Within 24 hours
Subjective/Interval History
-
Date of Service: July 29, 2023
Patient was comfortable without complaint she is a poor historian due to underlying dementia urine seems to have cleared most now is light tea colored there is no evident flank pain
Objective Data
-
Labs:
Laboratory Results
07/29/23
06:44
WBC 4.8
Hgb 9.9 L
Hct 30.1 L
Plt Count 153
Vital Signs:
Vital Signs
Temp Pulse Resp BP Pulse Ox
97.5 F 76 16 127/68 96
07/29/23 07:52 07/29/23 09:29 07/29/23 07:52 07/29/23 09:29 07/29/23 07:52
I&O
07/28/23 07/29/23 07/30/23
06:59 06:59 06:59
Intake Total 1620 / 1620 1380 / 1380
Output Total 1100 / 1100 1250 / 1250
Balance 520 / 520 130 / 130
Review of Systems
-
Unable to obtain full review of systems at this time due to: Dementia
All other systems: Not reviewed unless documented
Physical Exam
-
General: No Apparent Distress
HEENT: Normocephalic
Respiratory: Clear to Auscultation
Cardiac: Regular Rhythm
GI: Soft, Nontender and Nondistended
Psych: Calm, Confused and Apparent Dementia
Data Reviewed
-
Total Time Spent with Patient (in minutes): 56
Labs: Labs Reviewed by me (White count stable hemoglobin 9.9 stable)
--- NOTE | 2023-07-29 13:55 | PTCARENOTE ---
Bladder scanned pt at 1000 after pt complaining of urinary pressure. Pt did have a saturated urinary episode (incontinent) prior to obtaining a Pvr of 309ml with bladder scan. Pt up since to bathroom and voided a moderate amount as well as
incontinent. Pt states that urinary pressure is now gone, will continue to monitor.
[2023-07-29 16:26] VITALS: BP 102/71
[2023-07-29] MEDS: ELIQUIS 5 MG PO (20:58)
[2023-07-29 23:22] VITALS: BP 154/75
[2023-07-30 06:00] VITALS: BMI 33.5
[2023-07-30] MEDS: SYNTHROID 88 MCG PO (06:23)
[2023-07-30 08:20] VITALS: BP 165/93
[2023-07-30 08:26] LABS: Blood Urea Nitrogen 27 mg/dl (7-17); Carbon Dioxide 20 mmol/L (22-30); Chloride 110 mmol/L (98-107); Estimated Creatinine Clearance 32 ml/min; Glucose 103 mg/dl (70-99); Potassium 4.6 mmol/L (3.5-5.1); Sodium 136 mmol/L (135-145); eGFR 44.36
[2023-07-30] MEDS: LEVAQUIN 250 MG PO (08:42)
[2023-07-30] MEDS: VISBIOME 1 CAP PO (08:43)
[2023-07-30] MEDS: PROTONIX 40 MG PO ×2 (08:43→20:36)
[2023-07-30] MEDS: ELIQUIS 5 MG PO ×2 (08:43→20:35)
[2023-07-30] MEDS: TOPROL XL 12.5 MG PO ×2 (08:43→20:35)
[2023-07-30] MEDS: DETROL LA 2 MG PO (08:43)
--- NOTE | 2023-07-30 09:23 | W.DS.TRANS ---
DC Summary - [employer]
-
Discharge Instructions:
Discharge Diagnosis/Procedures Hemorrhagic cystitis
Pseudomonas UTI
Acute kidney injury now resolved
Chronic kidney disease stage IIIa
Diet Regular
Activity As tolerated
Driving Restrictions As prior to admission
Instructions:
Stand-Alone Forms:
Changes to Home Medications: Yes
Discharge Medications:
DC Medications w/original date entered in [employer]
omeprazole 20 mg capsule,delayed release 20 mg PO BID Gastrointestinal Issue 02/17/19
solifenacin 10 mg tablet (Vesicare) 5 mg PO DAILY Urinary Issue 02/17/19
Lactobac no.2-Bifidobac no.1-S. thermo 112.5 billion cell capsule (Visbiome) 1 cap PO DAILY probiotic 07/26/23
acetaminophen 325 mg tablet (Tylenol) 650 mg PO Q6HPRN PRN mild pain 07/26/23
albuterol sulfate 90 mcg/actuation aerosol inhaler (ProAir HFA) 1 puff inhalation R Q6HPRN PRN sob 07/26/23
apixaban 5 mg tablet (Eliquis) 5 mg PO BID Blood Clot Prevention/Tx 07/26/23
levothyroxine 88 mcg tablet (Synthroid) 88 mcg PO DAILY Thyroid 07/26/23
metoprolol succinate 25 mg tablet,extended release 24 hr (Toprol XL) 12.5 mg PO BID Blood Pressure 07/26/23
valsartan 80 mg tablet (Diovan) 80 mg PO DAILY Blood Pressure 07/26/23
levofloxacin 250 mg tablet 250 mg PO DAILY #2 tabs 07/30/23
Home Medication Changes
levofloxacin 250 mg tablet 250 mg PO DAILY #2 tabs 07/30/23
Pending Results: No
Total time spent discharging patient (in min): 38
[2023-07-30] MEDS: DIOVAN 80 MG PO (09:49)
--- NOTE | 2023-07-30 10:51 | W.DCSUMMARY ---
Addendum entered and electronically signed by Tracie Herron MD 07/31/23 16:06:
Actual discharge date is 07/31/2023. Nothing else changed on the discharge summary.
Original Note:
Discharge Summary
Discharge Data
Date of Admission: 07/26/23
Date of Discharge: 07/30/23
-
Pending Results: No
Hospital Course
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
Eliquis presenting from [facility] with dark blood in the urine noticed over the past 2 days.
Patient was apparently diagnosed with UTI 2 weeks ago because she was having urinary frequency and burning and has been on Bactrim for the past 6 days.� The dysuria has resolved but 2 days ago staff noticed that there was blood in the urine which
has been ongoing.� Patient also complained of some right flank pain recently although no pain currently.� No abdominal pain or nausea or vomiting.� No history of kidney stones.� Patient has lost 10 pounds recently and has been feeling fatigued.
No family history of urological problems.
She was a former smoker.� She no longer drinks alcohol.
An initial CT scan of the abdomen done in the ED initially reported a seven 6 cm lower pole kidney mass that was later changed to 0.7 cm and this was also acknowledged and read by the urology service on-call with a christophe consultation and their
impression being hemorrhagic cystitis as cause of presentation. She presented with acute kidney injury above and beyond her baseline of creatinine of 1.2 with a creatinine of 2.2 and was felt this was partially in keeping with a recent course of
Bactrim which was discontinued she was placed on Levaquin based on renal status every 48 hours empirically awaiting urine culture results that eventually returned a culture result of 25,000 colonies of Streptococcus/hematuria resolved with hydration
and ELIOT returned to baseline of creatinine of 1.2./With resolution of her hematuria and completing course of her UTI for another 2 days with Levaquin her Eliquis was resumed/should there be a return of hematuria again thoughts would be to
discontinue Eliquis and an outpatient visit with the urology service/with case management consultation and PT OT assessment and in discussions with the face patient's daughter a return to long-term care at [facility] is warranted and she is now
medically stable arrangements can only be made for that through insurance authorization come July 30.
Discharge Plan
-
Patient Disposition: Assisted/SNF
Discharge Diagnosis/Procedures: Hemorrhagic cystitis
Pseudomonas UTI
Acute kidney injury now resolved
Chronic kidney disease stage IIIa
Diet: Regular
Activity: As tolerated
Driving Restrictions: As prior to admission
Referrals:
My Mascorro CRNP [Family Provider] - in less than 1 week
Prescriptions:
New
levofloxacin 250 mg Tablet
250 mg PO DAILY Qty: 2 0RF
Continued
omeprazole 20 MG capsule,delayed release(DR/EC)
20 mg PO BID
solifenacin [Vesicare] 10 MG tablet
5 mg PO DAILY
acetaminophen [Tylenol] 325 mg Tablet
650 mg PO Q6HPRN PRN (Reason: mild pain)
valsartan [Diovan] 80 mg Tablet
80 mg PO DAILY
metoprolol succinate [Toprol XL] 25 mg Tablet Extended Release 24 Hr
12.5 mg PO BID
albuterol sulfate [ProAir HFA] 90 mcg/actuation Hfa Aerosol Inhaler
1 puff INHALATION R Q6HPRN PRN (Reason: sob)
Visbiome 112.5 billion cell Capsule
1 cap PO DAILY
Patient Comments:
take from 07/20/23-08/03/23
levothyroxine [Synthroid] 88 mcg Tablet
88 mcg PO DAILY
Eliquis 5 MG tablet
5 mg PO BID
Discontinued
sulfamethoxazole-trimethoprim [Bactrim DS] 800-160 mg Tablet
1 tab PO BID
Patient Comments:
take from 07/20/23/-08/06/23
Discharge Orders:
Discharge Patient (As Directed); Ordered 07/31/23
Ordered By: Asael Gaspar
--- NOTE | 2023-07-30 12:21 | CM ---
CM spoke with patients daughter Sanna, discussed plan to return to [facility] once auth is obtained. Sanna reports she initially wanted patient to transfer to [facility] if possible, but feels as though her mother is happy there, has made
friends, and the change may be detrimental. KRISTY faxed clinicals to [facility], pending reference number [id number]. KRISTY spoke with Hoa from [facility], able to accept patient once auth approved. KRISTY will continue to follow for discharge
planning needs.
Plan; [facility] SN[facility], auth pending.
[2023-07-30 12:35] VITALS: BP 154/87
[2023-07-30 15:23] VITALS: BP 152/80
[2023-07-30 20:29] VITALS: BP 155/76
[2023-07-30 23:55] VITALS: BP 173/83
[2023-07-31] VITALS (7 sets, daily range): BP systolic 116–179; BP diastolic 65–85; PULSE 74; O2SAT 98; BMI 33.7
[2023-07-31] MEDS: SYNTHROID 88 MCG PO (06:05)
[2023-07-31] MEDS: TOPROL XL 12.5 MG PO ×2 (09:14→18:26)
[2023-07-31] MEDS: DETROL LA 2 MG PO (09:14)
[2023-07-31] MEDS: PROTONIX 40 MG PO ×2 (09:14→18:26)
[2023-07-31] MEDS: DIOVAN 80 MG PO (09:14)
[2023-07-31] MEDS: LEVAQUIN 250 MG PO (09:14)
[2023-07-31] MEDS: VISBIOME 1 CAP PO (09:14)
[2023-07-31] MEDS: FLUSH (NSS) 1 FLUSH IV (09:15)
[2023-07-31] MEDS: ELIQUIS 5 MG PO ×2 (09:15→18:27)
--- NOTE | 2023-07-31 16:04 | W.PN.HOSP.TC ---
Today's Communication/Plan
-
d/c
Assessment / Plan
Assessment / Plan
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
Eliquis presenting from [facility] with dark blood in the urine noticed over the past 2 days.
Patient was apparently diagnosed with UTI 2 weeks ago because she was having urinary frequency and burning and has been on Bactrim for the past 6 days.� The dysuria has resolved but 2 days ago staff noticed that there was blood in the urine which
has been ongoing.� Patient also complained of some right flank pain recently although no pain currently.� No abdominal pain or nausea or vomiting.� No history of kidney stones.� Patient has lost 10 pounds recently and has been feeling fatigued.
No family history of urological problems.
She was a former smoker.� She no longer drinks alcohol.
Daughter reiterates that no interventions or invasive procedures be pursued in keeping with DNR status
Hematuria likely secondary to hemorrhagic cystitis
-
-Urinalysis shows greater than 100 RBC, +1 leukocyte esterase, positive nitrates and cloudy urine and 3-5 WBC/urine culture with only 25,000 Streptococcus
-CT abdomen pelvis shows 7 cm slightly high attenuation lesion mass/tumor along the lower pole of the right kidney
-Hold Eliquis
-Urology consulted and conferred with them no need to see patient/they reviewed CT imaging and lower pole mass is actually 0.7 cm/recommendation is to complete course of therapy for UTI and consideration is hemorrhagic cystitis as cause of hematuria
will see as outpatient as needed should hematuria returned consideration would be toward discontinuation of Eliquis/will complete course of therapy with Levaquin
# ELIOT on CKD
-Creatinine of 2.9 from 1.3/now at 2.2>> pending
-IV fluids will continue another 24 hours/she does have a history of CHF and will have to be cautious
-Hold Bactrim
-Hold valsartan/can be resumed once creatinine stabilizes
-His creatinine 1.6 will recheck in a.m.
# Recent UTI
-Received 6 days of Bactrim,
-Renal dosed Levaquin started in titrated down to 250 mg
Chronic urinary incontinence/overactive bladder
-Continue Vesicare
Dementia
Chronic anemia
-Hemoglobin stable thus far but trending down with continued hematuria
History of atrial arrhythmia with pacemaker
-Hold Eliquis
-Continue metoprolol
History of left bundle branch block
History of breast cancer status postlumpectomy
COPD
-Continue inhalers
Essential hypertension
Hypercholesterolemia
Hypothyroidism
-Continue levothyroxine
GERD
-Continue omeprazole
Former smoker
DNR/DNI
DVT prophylaxis�SCDs/apixaban continue to be held
Regular diet
pt accepted for d/c
Anticipated Discharge: Today
Subjective/Interval History
-
Date of Service: July 31, 2023
pt sitting in the chair
Objective Data
-
Vital Signs:
max temp for 24 hours
07/30/23
15:23
Temp 98.8 F
Vital Signs
Temp Pulse Resp BP Pulse Ox
98.0 F 60 18 165/82 96
07/31/23 07:26 07/31/23 07:26 07/31/23 07:26 07/31/23 07:26 07/31/23 07:26
I&O
07/30/23 07/31/23 08/01/23
06:59 06:59 06:59
Intake Total 120 / 120 240 / 240
Output Total 1300 / 1300 1100 / 1100
Balance -1180 / -1180 -860 / -860
Review of Systems
-
All other systems: Reviewed and negative
Physical Exam
-
General: Well Developed, Well Nourished and No Apparent Distress
HEENT: Normocephalic and Atraumatic
Respiratory: Clear to Auscultation; Negative Wheezes or Rhonchi
Cardiac: Regular Rhythm and S1/S2; Negative Murmur
GI: Soft, Nontender, Nondistended and Normal Bowel Sounds
Musculoskeletal: No Clubbing, No Cyanosis and No Edema
Neuro: Awake and Alert
--- NOTE | 2023-07-31 16:08 | CM ---
Patient seen at bedside. IMM completed and signed form placed on chart. Patient daughter aware of plan to transfer after auth. Patient daughter left and called back stating that the facility would accept without auth as long as the auth was started.
CM spoke with the admissions liaison and she agreed, CM updated [employer] community council member and patient will need ambulance for transfer. Please call report to [phone]/fax [phone]. CM will continue to follow for discharge planning needs.
Plan; return to SNF
== END 2023-07-31 20:16 | DRG 690 ==
LOC: 4 EAST ACU 17:28
PROVIDERS: Internal Medicine; Registered Nurse; ADMITTING PHYSICIAN Hospitalist; ATTENDING PHYSICIAN Internal Medicine; EMERGENCY PHYSICIAN Emergency Medicine; FAMILY PHYSICIAN Nurse Practitioner Family
DX: N39.0 Urinary tract infection, site not specified (principal); N17.9 Acute kidney failure, unspecified; B95.4 Other streptococcus as the cause of diseases classified elsewhere; R31.9 Hematuria, unspecified; I12.9 Hypertensive chronic kidney disease with stage 1 through stage 4 chronic kidney disease, or unspecified chronic kidney disease; N18.31 Chronic kidney disease, stage 3a; K21.9 Gastro-esophageal reflux disease without esophagitis; J44.9 Chronic obstructive pulmonary disease, unspecified; N28.89 Other specified disorders of kidney and ureter; N30.91 Cystitis, unspecified with hematuria; F03.90 Unspecified dementia, unspecified severity, without behavioral disturbance, psychotic disturbance, mood disturbance, and anxiety; D64.9 Anemia, unspecified; E03.9 Hypothyroidism, unspecified; I44.7 Left bundle-branch block, unspecified; Z66 Do not resuscitate; Z85.3 Personal history of malignant neoplasm of breast; Z95.0 Presence of cardiac pacemaker; Z87.891 Personal history of nicotine dependence
CPT/HCPCS: 74176; 80048; 80053; 81003; 81015; 85025; 85027; 85610; 87070; 87077; 87086; 96365; 97116; 97162; 97166; 97535; 99285

== ENCOUNTER 2024-08-26 09:06 | Emergency (ER) | payer MEDICARE, OTHER, SELFPAY ==
[2024-08-26] VITALS (7 sets, daily range): BP systolic 115–161; BP diastolic 57–97; BMI 34.4
[2024-08-26 09:43] LABS: % Basophils 0.3 % (0-2); % Eosinophils 0.7 % (0-6); % Immature Granulocytes 0.4 % (0-0.5); % Monocytes 10.5 % (1.7-9.3); % Neutrophils 77.1 % (42.2-75.2); Absolute Eosinophils 0.1 10^3/uL (0-0.7); Absolute Lymphocytes 0.8 10^3/uL (1.2-3.4); Absolute Monocytes 0.7 10^3/uL (0.1-0.6); Absolute Neutrophils 5.3 10^3/uL (1.4-6.5); Hematocrit 30.5 % (37.0-47.0); Hemoglobin 10.1 g/dL (12.0-16.0); Mean Corp Hgb Conc. 33.1 g/dL (33.0-37.0); Mean Corpuscular Hgb 30.9 pg (27.0-31.0); Mean Corpuscular Volume 93.3 fL (81.0-99.0); Mean Platelet Volume 10.8 fL (7.4-10.4); Nucleated Red Blood Cells % 0 %; Platelet Count 134 10^3/uL (130-400); Red Blood Cell Count 3.27 10^6/uL (4.20-5.40); Red Cell Dist. Width 14.2 % (11.5-14.5); White Blood Cell Count 6.9 10^3/uL (4.8-10.8)
[2024-08-26 09:53] LABS: ALT (SGPT) 14 U/L (0-35); AST (SGOT) 21 U/L (14-36); Albumin 3.8 g/dl (3.5-5.0); Alkaline Phosphatase 102 U/L (38-126); Blood Urea Nitrogen 24 mg/dl (7-17); Calcium 9.5 mg/dl (8.4-10.2); Carbon Dioxide 27 mmol/L (22-30); Chloride 106 mmol/L (98-107); Estimated Creatinine Clearance 38 ml/min; Glucose 118 mg/dl (70-99); Potassium 3.8 mmol/L (3.5-5.1); Sodium 141 mmol/L (135-145); Total Bilirubin 0.8 mg/dl (0.2-1.3); Total Protein 6.9 g/dl (6.3-8.2); eGFR 54.87
[2024-08-26 09:59] LABS: COVID-19 Antigen Positive (Negative); Urine Albumin 1+ (Neg - Trace); Urine Bilirubin Negative (Negative); Urine Character Clear (Clear); Urine Color Yellow; Urine Glucose Negative (Negative); Urine Ketone Negative (Negative); Urine Leukocyte Negative (Negative); Urine Nitrite Negative (Negative); Urine Occult Blood 2+ (Negative); Urine Specific Gravity 1.025 (<1.030); Urine Urobilinogen Negative (Neg - 1+)
[2024-08-26 11:37] LABS: Urine Mucus Many; Urine Squamous Cell >30 /LPF (Few)
[2024-08-26 11:38] LABS: Urine Amorphous Seen
[2024-08-26 11:40] LABS: Urine Red Blood Cell 0-2 /HPF (0-2); Urine White Cell 0-2 /HPF (0-5)
[2024-08-26] MEDS: TYLENOL 650 MG PO (11:41)
--- NOTE | 2024-08-26 12:55 | ED.GENMED ---
History of Present Illness
General
Chief Complaint: Weakness
Source: patient
Exam Limitations: none
Time Seen by Provider: 08/26/24 09:08
Nursing documentation reviewed up to this point in time: agreed with
History of Present Illness
History of Present Illness:
84-year-old female with past medical history of asthma COPD, hypertension, presenting to the emergency department today with concerns of generalized weakness fatigue. Mainly starting this morning. Denies specific chest pain shortness of breath
nausea vomiting.
Past History
Past History
ED Past Medical History: Cancer (Lumpectomy), HTN, Hypercholesterolemia and Hypothyroidism
ED Past Surgical History: Appendectomy, Cardiac (pacemaker), Gynecological, Orthopedic, Urological (hysterectomy) and Other (Lumpectomy L 2010)
Social History
Tobacco: Non-smoker
Alcohol: None
Drug: None
Personal:
Living: with family
Employment: Retired
Family History
Family History: Hypertension
Review of Systems
Review of Systems
Allergies reviewed?: Yes
All Other Systems: ROS reviewed and negative except as documented in HPI and ROS
Phy Exam
Physical Exam
Physical Exam:
GENERAL: Alert , in no apparent distress
EYE: pupils equal and reactive
NECK: Supple, no significant adenopathy.
ENT: o/p clr, mmm.
CARDIAC: Regular rate and rhythm .
LUNGS: Clear breath sounds bilaterally, no acute respiratory distress, no wheezes/rales/rhonchi
ABDOMEN: Soft, without focal tenderness, no r/g, no cvat
NEUROLOGICAL: Alert and oriented, no focal neuro deficits
SKIN: Warm and dry, skin intact.
MUSCULOSKELETAL: No edema, well perfused.
PSYCH: Normal and appropriate interaction.
Course
Orders/Labs/Results
Orders:
Orders
08/26/24 09:08
EKG [Electrocardiogram (*1)] Urgent
Reason for Study: Fatigue / Weakness
08/26/24 09:09
EKG- Treatment ONCE
08/26/24 09:13
COVID-19 Antigen Urgent
Source: Nasal Swab
Complete Blood Count/With Diff Urgent
Comprehensive Metabolic Panel Urgent
Urinalysis Reflex To Culture Urgent
Date Specimen was Collected: 08/26/24
Time Specimen was Collected: 09:10
Urine Microscopic Reflex Cult Urgent
Influenza A+B Rapid Molecular Urgent
PATRICIA Source: Nasal Swab
Specimen Description:
08/26/24 10:12
CT Abd/Pel (IV only)-DH only Urgent
Comment:
Reason For Exam: right sided abd pain
08/26/24 11:38
Acetaminophen [Tylenol] 650 mg PO NOW STA
Abnormal Lab Results
08/26/24
09:13
RBC 3.27 L 10^6/uL
(4.20-5.40)
Hgb 10.1 L g/dL
(12.0-16.0)
Hct 30.5 L %
(37.0-47.0)
MPV 10.8 H fL
(7.4-10.4)
Absolute Lymphs (auto) 0.8 L 10^3/uL
(1.2-3.4)
Absolute Monos (auto) 0.7 H 10^3/uL
(0.1-0.6)
Neutrophils % 77.1 H %
(42.2-75.2)
Lymphocytes % 11.0 L %
(20.5-51.1)
Monocytes % 10.5 H %
(1.7-9.3)
BUN 24 H mg/dl
(7-17)
Glucose 118 H mg/dl
(70-99)
Ur Occult Blood Reflex 2+ A
(Negative)
Urine Albumin (Reflex) 1+ A
(Neg - Trace)
SARS-CoV-2 Antigen Positive A
(Negative)
08/26/24 09:13
08/26/24 09:13
Vital Signs
Initial and Last Documented VS:
Initial Vital Signs
Temp Pulse Resp BP Pulse Ox
98.6 F 74 20 161/87 97
08/26/24 09:16 08/26/24 09:16 08/26/24 09:16 08/26/24 09:16 08/26/24 09:16
Last Documented Vital Signs
Temp Pulse Resp BP Pulse Ox
99.3 F 64 16 145/97 94
08/26/24 11:40 08/26/24 11:00 08/26/24 11:00 08/26/24 11:00 08/26/24 10:00
MDM/Problems Addressed
MDM/Problems Addressed:
84-year-old female presenting to the emergency department today with concerns of vague generalized weakness fatigue starting today. Some mild upper respiratory symptoms as well. Initially blood pressure elevated otherwise vital signs are normal.
Blood pressure improving without specific treatment. Labs without emergent findings other than slightly elevated BUN to creatinine ratio. She was given some oral rehydration. She was positive for COVID. This likely explains her symptoms. No
evidence of complication. She did claim to have some right sided abdominal pain CT scan did not show any emergent findings. Otherwise patient stable for outpatient management of this. Return precautions given.
*Critical Care Note
Total Time (30-74mins, 75-104mins- exclusive of procedures): Not Applicable
ED Attending Note
-
Portions of this chart may have been created with voice recognition software.� Occasional wrong word or��sound alike� substitutions may have occurred due to the inherent limitations of voice recognition software.
Discharge Plan
Departure
Patient Disposition: Home (Routine Discharge)
Date of Disposition: 08/26/24
Time of Disposition: 12:56
Patient with high blood pressure during this ER visit?: No
Condition: Good
Covid-19: Not Applicable
Discharge Problem:
COVID-19
Instructions: COVID-19 - ED discharge instructions
Prescriptions:
No Action
omeprazole 20 MG capsule,delayed release(DR/EC)
20 mg PO BID
solifenacin [Vesicare] 10 MG tablet
5 mg PO DAILY
acetaminophen [Tylenol] 325 mg Tablet
650 mg PO Q6HPRN PRN (Reason: mild pain)
valsartan [Diovan] 80 mg Tablet
80 mg PO DAILY
metoprolol succinate [Toprol XL] 25 mg Tablet Extended Release 24 Hr
12.5 mg PO BID
albuterol sulfate [ProAir HFA] 90 mcg/actuation Hfa Aerosol Inhaler
1 puff INHALATION R Q6HPRN PRN (Reason: sob)
Visbiome 112.5 billion cell Capsule
1 cap PO DAILY
Patient Comments:
take from 07/20/23-08/03/23
levothyroxine [Synthroid] 88 mcg Tablet
88 mcg PO DAILY
Eliquis 5 MG tablet
5 mg PO BID
levofloxacin 250 mg Tablet
250 mg PO DAILY Qty: 2 0RF
Referrals:
Kleber Maria I., DO [Family Provider] -
Activity Restrictions/Additional Instructions:
You came to the emergency department today with concerns of generalized weakness. You are found to have COVID. Please stay hydrated take symptomatic medications otherwise return for any worsening, new or concerning symptoms.
Interventions
Interventions:
*Risk Screen - Suicide Last Done: 08/26/24 09:16
*General Assessment Last Done: 08/26/24 09:16
*Neglect/Abuse Screening Last Done: 08/26/24 09:16
*ED- Fall Risk Assessment Last Done: 08/26/24 09:16
ED- Cardiac Assessment Last Done: 08/26/24 09:39
ED- Neurological Assessment Last Done: 08/26/24 09:39
ED- Pulmonary Assessment Last Done: 08/26/24 09:39
Discharge Date and Time
Print Language: ARMENIAN
== END 2024-08-26 15:32 | disposition home or self-care (01) ==
LOC: EMR 09:06
PROVIDERS: Physician Assistant; EMERGENCY PHYSICIAN Student in an Organized Health Care Education/Training Program; FAMILY PHYSICIAN Internal Medicine
DX: U07.1 COVID-19 (principal); I10 Essential (primary) hypertension; E78.00 Pure hypercholesterolemia, unspecified; E03.9 Hypothyroidism, unspecified; Z82.49 Family history of ischemic heart disease and other diseases of the circulatory system; Z90.49 Acquired absence of other specified parts of digestive tract; Z90.710 Acquired absence of both cervix and uterus; Z95.0 Presence of cardiac pacemaker
CPT/HCPCS: 99284; 74177; 80053; 81003; 81015; 85025; 87502; 87811; 93005; Q9967